=== PATIENT | female | born 1975 | race Caucasian/White ===

== ENCOUNTER 2017-02-01 10:04 | Emergency (ER) | payer BC, OTHER ==
[2017-02-01 10:05] VITALS: BMI 27.1
[2017-02-01] MEDS ORDERED: Epinephrine /Lidocaine HCL 1:100,000/2% 30 ml INFIL STA (11:59)
[2017-02-01] MEDS ORDERED: Tetanus/Diphtheria Toxoids 0.5 ml Syringe IM ONE ×2 (12:00→12:06)
[2017-02-01] MEDS ORDERED: Lidocaine 2% Inj (20ml) ONE (12:06)
[2017-02-01] MEDS ORDERED: Tmp-Smz 800 mg-160 mg DS Tab PO STA (13:32)
[2017-02-01] MEDS ORDERED: Tmp-Smz 800 mg-160 mg DS Tab ONE (13:35)
[2017-02-01 13:46] VITALS: BP 136/92; PULSE 90; RESP 20; TEMP 97.9; O2SAT 98
--- NOTE | 2017-02-01 13:46 | C.PDOC ---
Time Seen by Provider: 02/01/17 11:10 Chief Complaint (Nursing): Abnormal Skin Integrity History Per: Patient Onset/Duration Of Symptoms: Days (2) Current Symptoms Are (Timing): Still Present Location Of Injury: Left: Buttock Quality Of Symptoms: Painful, Swollen Severity: Moderate Additional History Per: Prior Records Past Medical History Reviewed: Historical Data, Nursing Documentation, Vital Signs Vital Signs: Last Vital Signs Temp 97.9 F 02/01/17 13:45 Pulse 90 02/01/17 13:45 Resp 20 02/01/17 13:45 BP 136/92 H 02/01/17 13:45 Pulse Ox 98 02/01/17 13:46 - Medical History PMH: HTN, Hypercholesterolemia Family History: States: Unknown Family Hx - Social History Hx Tobacco Use: No Hx Alcohol Use: No Hx Substance Use: No - Immunization History Hx Tetanus Toxoid Vaccination: No Hx Influenza Vaccination: No Hx Pneumococcal Vaccination: No Review Of Systems Except As Marked, All Systems Reviewed And Found Negative. Constitutional: Negative for: Fever, Weakness Cardiovascular: Negative for: Chest Pain Respiratory: Negative for: Shortness of Breath Gastrointestinal: Negative for: Vomiting, Abdominal Pain, Rectal Pain Genitourinary: Negative for: Dysuria Musculoskeletal: Negative for: Neck Pain, Back Pain Neurological: Negative for: Weakness, Numbness, Seizures, Altered Mental Status Physical Exam - Physical Exam Appears: Non-toxic, No Acute Distress Skin: Warm, Dry, Other (Abscess on left medial buttock) Head: Atraumatic, Normacephalic Eye(s): bilateral: Normal Inspection, PERRL, EOMI Neck: Normal ROM, Supple Rectal: Other (external exam with no anal abscess) Back: No CVA Tenderness Extremity: Normal ROM Neurological/Psych: Oriented x3, Normal Motor, Normal Sensation ED Course And Treatment - Laboratory Results Urine POC: Negative O2 Sat by Pulse Oximetry: 98 Pulse Ox Interpretation: Normal Reassessment Condition: Improved - Incision & Drainage Of Abscess Anesthesia: Lidocaine 2% Prep Used: Betadine Procedure: Incised W/Scalpel Blade#: (12), Drained Pus, Probed To Break Up Loculations, Packed W/Gauze, Cultures Obtained And Sent To Lab Disposition Counseled Patient/Family Regarding: Diagnosis, Need For Followup, Rx Given - Disposition Referrals: Kadi Dwyer MD [Medical Doctor] - Disposition: HOME/ ROUTINE Disposition Time: 13:48 Condition: IMPROVED Additional Instructions: Return to the ER in 2 days for packing removal. Return to the ER immediately if you develop fever, chills, lethargy, worsening of symptoms or if you have any other concerns. Prescriptions: Sulfamethoxazole/Trimethoprim [Bactrim DS 800 mg-160 mg] 1 tab PO BID #14 tab Instructions: Abscess Incision and Drainage (ED) Print Language: UKRAINIAN - Clinical Impression Clinical Impression: Abscess of buttock, left
== END 2017-02-01 14:23 | disposition home or self-care (01) ==
LOC: C.ER 10:04
DX: L02.31 Cutaneous abscess of buttock (principal)

== ENCOUNTER 2017-02-03 09:12 | Emergency (ER) | payer OTHER ==
[2017-02-03 09:13] VITALS: BMI 27.1
[2017-02-03 09:20] VITALS: BP 127/83; PULSE 89; RESP 18; TEMP 98; O2SAT 99
--- NOTE | 2017-02-03 09:55 | C.PDOC ---
History Of Present Illness 41 y/o female returns to ED for wound check s/p I&D of abscess to left buttock area, performed 2 days ago here in ED. Pt admits to improvement of symptoms. Pt denies fever, chills, increasing pain, significant wound discharge or any other complaints. Time Seen by Provider: 02/03/17 09:46 Chief Complaint (Nursing): Wound Check History Per: Patient History/Exam Limitations: no limitations Current Symptoms Are (Timing): Better Severity: Mild Recent travel outside of the [place]: No Past Medical History Reviewed: Historical Data, Nursing Documentation, Vital Signs Vital Signs: Last Vital Signs Temp 98 F 02/03/17 09:18 Pulse 89 02/03/17 09:18 Resp 18 02/03/17 09:18 BP 127/83 02/03/17 09:18 Pulse Ox 99 02/03/17 12:31 - Medical History PMH: HTN, Hypercholesterolemia Family History: States: Unknown Family Hx - Social History Hx Tobacco Use: No Hx Alcohol Use: No Hx Substance Use: No - Immunization History Hx Tetanus Toxoid Vaccination: No Hx Influenza Vaccination: No Hx Pneumococcal Vaccination: No Review Of Systems Except As Marked, All Systems Reviewed And Found Negative. Constitutional: Negative for: Fever, Chills Skin: Positive for: Other (wound check - abscess to left buttock, no discharge) Physical Exam - Physical Exam Appears: Well, Non-toxic, No Acute Distress Skin: Warm, Dry, No Rash, Other (small open wound to left gluteal area with packing in place, no discharge, erythema or fluctuance) Extremity: Normal ROM Extremity: Bilateral: Atraumatic Neurological/Psych: Oriented x3, Normal Speech ED Course And Treatment O2 Sat by Pulse Oximetry: 99 (on room air) Pulse Ox Interpretation: Normal Progress Note: Skin: wound cleaned, packing removed, irrigated, covered with sterile dressing. Pt advised to cont. abx as intiated. F/U with PMD in 2-3 days for re-eavl. Disposition Counseled Patient/Family Regarding: Diagnosis, Need For Followup - Disposition Disposition: HOME/ ROUTINE Disposition Time: 09:54 Condition: STABLE Additional Instructions: Keep wound clean, dry Continue antibiotic as initiated Follow up with PMD in 2 days for re-evaluation. Return to ED if any worsening or new changes. Instructions: Abscess Incision and Drainage (ED) Forms: Work Excuse Print Language: VINCENTIAN - Clinical Impression Clinical Impression: Wound check, abscess - PA / TEST DESK TROUBLE LOCATOR / Resident Statement MD/DO has reviewed & agrees with the documentation as recorded. - Scribe Statement The provider has reviewed the documentation as recorded by the Scribkarina Denis All medical record entries made by the Abelardoibkarina were at my direction and personally dictated by me. I have reviewed the chart and agree that the record accurately reflects my personal performance of the history, physical exam, medical decision making, and the department course for this patient. I have also personally directed, reviewed, and agree with the discharge instructions and disposition.
== END 2017-02-03 10:01 | disposition home or self-care (01) ==
LOC: C.ER 09:12
DX: Z48.00 Encounter for change or removal of nonsurgical wound dressing (principal)

== ENCOUNTER 2017-03-08 09:10 | Day surgery (SDC) | payer BC, OTHER ==
[2017-03-08] MEDS ORDERED: Propofol 10 mg/ml Inj (20 ML) ONE (12:01)
[2017-03-08] MEDS ORDERED: Sodium Chloride 0.9% 500 ML IV ONE ×2 (12:02)
[2017-03-08 12:06] VITALS: RESP 14; O2SAT 100
[2017-03-08 12:37] VITALS: TEMP 98
[2017-03-08 13:42] VITALS: BP 118/74; PULSE 71
== END 2017-03-08 13:00 | disposition home or self-care (01) ==
LOC: C.ENDO 09:10
PROVIDERS: ATTEND Internal Medicine Gastroenterology
DX: K62.5 Hemorrhage of anus and rectum (principal); K64.8 Other hemorrhoids
CPT/HCPCS: 45378; 84703; J2704; J7040

== ENCOUNTER 2018-10-27 11:23 | Emergency (ER) | payer BC, OTHER ==
[2018-10-27 11:41] VITALS: BMI 29.0
[2018-10-27 11:43] VITALS: RESP 17; O2SAT 99
--- NOTE | 2018-10-27 12:44 | C.PDOC ---
History Of Present Illness 42 y/o female presents to ED complaining of left-sided anterior chest pain for the last 10 days. Patient states it feels like muscular chest pain and she has been taking ibuprofen with some relief. Denies SOB, urinary symptoms, cough, fever, chills, or abdominal pain. States it does not hurt to take a deep breath but she feels some discomfort when moving her arms. Patient does not work with any heavy lifting. Patient had similar episodes last March and was diagnosed with muscular chest pain. Time Seen by Provider: 10/27/18 12:27 Chief Complaint (Nursing): Chest Pain History Per: Patient History/Exam Limitations: no limitations Onset/Duration Of Symptoms: Days Current Symptoms Are (Timing): Still Present Past Medical History Reviewed: Historical Data, Nursing Documentation, Vital Signs Vital Signs: Last Vital Signs Temp 98.2 F 10/27/18 11:41 Pulse 83 10/27/18 11:41 Resp 17 10/27/18 11:41 BP 149/97 H 10/27/18 11:41 Pulse Ox 99 10/27/18 11:41 - Medical History PMH: Gastritis, HTN, Hypercholesterolemia Denies: Depression, Chronic Kidney Disease Surgical History: Endoscopy Family History: States: No Known Family Hx - Social History Hx Tobacco Use: No Hx Alcohol Use: No Hx Substance Use: No - Immunization History Hx Tetanus Toxoid Vaccination: No Hx Influenza Vaccination: No Hx Pneumococcal Vaccination: No Review Of Systems Constitutional: Negative for: Fever, Chills Cardiovascular: Positive for: Chest Pain (L-sided) Respiratory: Negative for: Cough, Shortness of Breath Gastrointestinal: Negative for: Abdominal Pain Genitourinary: Negative for: Dysuria Physical Exam - Physical Exam Appears: Non-toxic, No Acute Distress Skin: Warm, Dry Head: Atraumatic, Normacephalic Eye(s): bilateral: Normal Inspection, PERRL, EOMI Oral Mucosa: Moist Neck: Supple Chest: Symmetrical Cardiovascular: Rhythm Regular, No Murmur Respiratory: Normal Breath Sounds, No Rales, No Rhonchi, No Wheezing Gastrointestinal/Abdominal: Soft, No Tenderness Extremity: No Pedal Edema Extremity: Bilateral: Atraumatic, Normal Color And Temperature, Normal ROM Neurological/Psych: Oriented x3, Normal Speech ED Course And Treatment - Laboratory Results Result Diagrams: 10/27/18 12:55 10/27/18 12:55 Lab Interpretation: Normal ECG: Interpreted By Me ECG Rhythm: Sinus Rhythm ECG Interpretation: Normal O2 Sat by Pulse Oximetry: 99 (RA) Pulse Ox Interpretation: Normal - Radiology CXR: Interpreted by Me CXR Interpretation: Yes: No Acute Disease Reevaluation Time: 13:30 Reassessment Condition: Improved (Feels much better after IV Toradol) Medical Decision Making Medical Decision Making: Plan: --EKG --Labs --Chest X-Ray --Urinalysis --Toradol Disposition Counseled Patient/Family Regarding: Studies Performed, Diagnosis, Need For Followup - Disposition Referrals: [facility] [Outside] Disposition: HOME/ ROUTINE Disposition Time: 13:32 Condition: IMPROVED Additional Instructions: Continue taking Advil 2-3 tablets with food every 6-8 hours if needed for pain. Instructions: Muscle Strain (DC) Forms: [employer] (Maltese) - Clinical Impression Clinical Impression: Muscle strain of anterior chest wall - Scribe Statement The provider has reviewed the documentation as recorded by the Ev Parikh Provider Attestation: All medical record entries made by the Abelardoibkarina were at my direction and personally dictated by me. I have reviewed the chart and agree that the record accurately reflects my personal performance of the history, physical exam, medical decision making, and the department course for this patient. I have also personally directed, reviewed, and agree with the discharge instructions and disposition.
[2018-10-27 12:59] LABS: BASO % 0.5 % (0.0-2.0); EOS % 0.4 % (0.0-4.0); HEMOGLOBIN 12.4 g/dL (11.0-16.0); LYMPH # 1.2 K/uL (1.0-4.3); MEAN CELL VOLUME 85.1 fL (81.0-99.0); MEAN CORPUSCULAR HEMOGLOBIN 28.3 pg (27.0-31.0); MEAN CORPUSCULAR HGB CONC 33.2 g/dL (33.0-37.0); MEAN PLATELET VOLUME 8.4 fL (7.2-11.7); MONO # 0.5 K/uL (0.0-0.8); MONO % 6.6 % (0.0-10.0); NEUT # 5.4 K/uL (1.8-7.0); NEUT % 75.5 % (50.0-75.0); NRBC % 0.1 % (0.0-2.0); RBC 4.37 Mil/uL (3.80-5.20); RED CELL DISTRIBUTION WIDTH 13.6 % (11.5-14.5); WHITE BLOOD COUNT 7.2 K/uL (4.8-10.8)
[2018-10-27 13:12] VITALS: BP 127/80; PULSE 73; TEMP 98.3
[2018-10-27 13:12] LABS: ALB/GLOB RATIO 1.4 (1.0-2.1); ALBUMIN 4.2 g/dL (3.5-5.0); ALT/SGPT 23 U/L (9-52); AST/SGOT 23 U/L (14-36); BLOOD UREA NITROGEN 9 mg/dL (7-17); GFR NON-AFRICAN AMERICAN > 60
--- NOTE | 2018-10-27 15:24 | RAD ---
Date of service: 10/27/2018 HISTORY: chest pain COMPARISON: Comparison is made with 08/18/2015 TECHNIQUE: Chest PA and lateral FINDINGS: LUNGS: No active pulmonary disease. PLEURA: No significant pleural effusion identified. No pneumothorax apparent. CARDIOVASCULAR: No aortic atherosclerotic calcification present. Normal cardiac size. No pulmonary vascular congestion. OSSEOUS STRUCTURES: No significant abnormalities. VISUALIZED UPPER ABDOMEN: Normal. OTHER FINDINGS: None. IMPRESSION: No active disease.
--- NOTE | 2018-10-29 17:38 | CARD ---
APPROVED REPORT Date of service: 10/27/2018 EKG Measurement Heart [id number] <Conclusion> Normal sinus rhythm Normal ECG
== END 2018-10-27 13:45 | disposition home or self-care (01) ==
LOC: C.ER 11:23
DX: S29.011A Strain of muscle and tendon of front wall of thorax, initial encounter (principal); X58.XXXA Exposure to other specified factors, initial encounter; Y92.9 Unspecified place or not applicable; I10 Essential (primary) hypertension; E78.00 Pure hypercholesterolemia, unspecified
CPT/HCPCS: 71046; 80053; 84484; 84703; 85025; 93005; 96374; 99285; J1885